=== PATIENT | female | born 1965 | race Two or more races ===

== ENCOUNTER 2021-04-17 15:21 | Emergency (ER) | payer MEDICAID ==
[~2021-04-17] VITALS: Ht 160 cm; Wt 88.5 kg
[~2021-04-17 15:21] MED LIST: CEPH-569; HYDR-3974; SULF1TAB47
--- NOTE | 2021-04-17 15:44 | NUR ---
ER BED 3, C/O MD GUS AT BEDSIDE, PT SHOWS NO RESPIRATORY DISTRESS, RESPIRATIONS WITHIN NORMAL LIMITS. EKG AT BEDSIDE
--- NOTE | 2021-04-17 15:56 | NUR ---
URINE SAMPLE COLLECTED AND SENT TO LAB
[2021-04-17 16:00] LABS: BASOPHILS % (AUTO) 0.5 % (0.0-2.0); EOSINOPHILS % (AUTO) 1.7 % (0.0-6.0); HEMATOCRIT 41 % (33-45); HEMOGLOBIN 13.1 g/dL (11.5-14.8); LYMPHOCYTES # (AUTO) 1.9 K/uL (0.8-4.8); LYMPHOCYTES % (AUTO) 28.9 % (20.0-44.0); MEAN CORPUSCULAR HGB CONC 32 g/dl (31.0-36.0); MEAN CORPUSCULAR VOLUME 87 fL (82-100); MONOCYTES # (AUTO) 0.5 K/uL (0.1-1.30); MONOCYTES % (AUTO) 7.2 % (2.0-12.0); NEUTROPHILS # (AUTO) 4.1 K/uL (1.8-8.9); NEUTROPHILS % (AUTO) 61.7 % (43.0-81.0); PLATELET COUNT (AUTO) 225 K/uL (150-450); RED BLOOD CELL COUNT(AUTO) 4.64 MIL/uL (4.0-5.2); WHITE BLOOD COUNT (AUTO) 6.6 K/uL (4.3-11.0)
[2021-04-17] MEDS: IV NS 0.9% 1,000 ML BAG IV ONE (16:00)
[2021-04-17 16:10] LABS: CALCIUM, SERUM 9.1 mg/dL (8.5-10.1); CARBON DIOXIDE 28 mmol/L (21-32); CHLORIDE 108 mmol/L (98-107); CREATININE 0.6 mg/dL (0.6-1.3); GLUCOSE 110 mg/dL (74-106); POTASSIUM 3.7 mmol/L (3.5-5.1); SODIUM SERUM 145 mmol/L (136-145); UREA NITROGEN, BLOOD 12 mg/dL (7-18)
[2021-04-17 16:26] LABS: THYROID STIMULATING HORMONE < 0.007 uIU/mL (0.358-3.74)
[2021-04-17 16:39] LABS: BILIRUBIN,URINE Negative (NEGATIVE); COLOR,URINE YELLOW (YELLOW); LEUKOCYTE ESTERASE ,URINE Trace (NEGATIVE); NITRITE, URINE Negative (NEGATIVE); PROTEIN,URINE Negative (NEGATIVE); UGLUCOSE Negative (NEGATIVE)
[2021-04-17 16:40] LABS: BACTERIA,URINE Few /HPF (None Seen); SQUAMOUS EPITHELIAL CELL,UR Few /HPF (None Seen)
[2021-04-17 18:16] LABS: ALKALINE PHOSPHATASE 89 U/L (46-116); BILIRUBIN,TOTAL 0.3 mg/dL (0.2-1.0)
[2021-04-17 18:17] LABS: ALANINE AMINOTRANSFERASE 34 U/L (12-78); ALBUMIN 3.6 g/dL (3.4-5.0); ASPARTATE AMINOTRANSFERASE 19 U/L (15-37); LIPASE 212 U/L (73-393); TOTAL PROTEIN, SERUM 7.7 g/dL (6.4-8.2)
--- NOTE | 2021-04-17 18:42 | NUR ---
LIVER ENZYMES TEST ARE BACK, T3 TEST SENT TO [facility] PER MD ALEXIS NOTIFIED
[2021-04-17] MEDS ORDERED: POLY17PO4 PO (19:52)
--- NOTE | 2021-04-17 20:06 | NUR ---
Patient discharged to home in stable condition. Written and verbal after care instructions given. Patient verbalizes understanding of instruction.
[2021-04-17 20:07] VITALS: BP 134/64
== END 2021-04-17 20:07 | disposition home or self-care (01) ==
LOC: ER 15:25
DX: E05.90 Thyrotoxicosis, unspecified without thyrotoxic crisis or storm (principal); R07.89 Other chest pain; Z98.890 Other specified postprocedural states; Z79.899 Other long term (current) drug therapy
CPT/HCPCS: 36415; 71045; 76705; 80053; 81001 ×2; 83690; 84439; 84443; 84480; 84484 ×2; 84703; 85025; 85378; 93005 ×3; 96360; 99285; J7030

== ENCOUNTER 2022-03-26 11:36 | Emergency (ER) | payer MEDICAID ==
[~2022-03-26] VITALS: Ht 160 cm; Wt 85.3 kg
[~2022-03-26 11:36] MED LIST changes: +POLY17PO4 PO
[2022-03-26 12:13] VITALS: BP 142/86
[2022-03-26] MEDS ORDERED: GUAIFENESIN/D-METHORPHAN HB 5 ML UDC ONE (12:43)
[2022-03-26] MEDS: GUAIFENESIN/D-METHORPHAN HB 5 ML UDC PO ONE (12:45)
--- NOTE | 2022-03-26 13:45 | NUR ---
COVID AND FLU SWABS DONE AND SENT TO LAB
[2022-03-26] MEDS ORDERED: BENZ-13 PO (14:05)
[2022-03-26] MEDS ORDERED: GUAI1TBM19 PO (14:05)
--- NOTE | 2022-03-26 14:17 | NUR ---
Patient discharged to home in stable condition. Written and verbal after care instructions given. Patient verbalizes understanding of instruction.
== END 2022-03-26 14:17 | disposition home or self-care (01) ==
LOC: ER 11:42
DX: J06.9 Acute upper respiratory infection, unspecified (principal); B97.89 Other viral agents as the cause of diseases classified elsewhere; M79.10 Myalgia, unspecified site; Z20.822 Contact with and (suspected) exposure to COVID-19; E89.0 Postprocedural hypothyroidism
CPT/HCPCS: 71045; 87426; 87804; 99284; C9803

== ENCOUNTER 2022-10-29 15:10 | Emergency (ER) | payer MEDICAID, OTHER ==
[~2022-10-29] VITALS: Ht 160 cm; Wt 86.2 kg
[~2022-10-29 15:10] MED LIST changes: +BENZ-13 PO; +GUAI1TBM19 PO
--- NOTE | 2022-10-29 15:40 | NUR ---
RECEIVED PT 57 YRS FEMALE CAME FROM HOME C/O NECK AND BACK PAIN S/P TA THIS no weekness
[2022-10-29] MEDS ORDERED: CARI350T PO (16:42)
--- NOTE | 2022-10-29 16:50 | NUR ---
Paul smith in [facility] - 10/29/22 at 1651 by JESSICA [employer] AT [facility] SIDE
[2022-10-29 17:44] VITALS: BP 131/77
--- NOTE | 2022-10-29 17:45 | NUR ---
Patient discharged to home in stable condition. Written and verbal after care instructions given. Patient verbalizes understanding of instruction.
== END 2022-10-29 17:37 | disposition home or self-care (01) ==
LOC: ER 15:26
DX: S13.4XXA Sprain of ligaments of cervical spine, initial encounter (principal); Z98.890 Other specified postprocedural states; Z90.710 Acquired absence of both cervix and uterus; Z79.899 Other long term (current) drug therapy; V49.9XXA Car occupant (driver) (passenger) injured in unspecified traffic accident, initial encounter; Y93.89 Activity, other specified; Y92.89 Other specified places as the place of occurrence of the external cause; Y99.8 Other external cause status
CPT/HCPCS: 72125-TC

== ENCOUNTER → 2024-02-07 | Emergency (ER) | payer OTHER ==
[~2024-02-07] VITALS: Ht 162.6 cm; Wt 82.1 kg
[~2024-02-07] MED LIST changes: +ACET-2605 PO; +ACETAMINOPHEN ES 500 MG TABLET ONE; +CARI350T PO; +CYCL10TA9 PO; +CYCLOBENZAPRINE 10 MG TABLET ONE; +IBUP-1957 PO; +KETOROLAC TROMETHAMINE 15 MG/ML VIAL ONE; +LIDOCAINE 5% (PATCH) 1 EA PATCH TP ONE
[2024-02-07] MEDS: KETOROLAC TROMETHAMINE 15 MG/ML VIAL IM ONE (15:20)
[2024-02-07 15:21] LABS: APPEARANCE,URINE CLEAR (CLEAR); BILIRUBIN,URINE NEGATIVE (NEGATIVE); BLOOD, URINE NEGATIVE Ery/uL (NEGATIVE); COLOR,URINE YELLOW (YELLOW); KETONES,URINE NEGATIVE (NEGATIVE); LEUKOCYTE ESTERASE ,URINE NEGATIVE (NEGATIVE); NITRITE, URINE NEGATIVE (NEGATIVE); PROTEIN,URINE NEGATIVE (NEGATIVE); UGLUCOSE NEGATIVE (NEGATIVE); UROBILINOGEN,URINE 0.2 EU/dL (0.2)
[2024-02-07] MEDS: ACETAMINOPHEN ES 500 MG TABLET PO ONE (15:21)
[2024-02-07] MEDS: CYCLOBENZAPRINE 10 MG TABLET PO ONE (15:21)
[2024-02-07] MEDS: LIDOCAINE 5% (PATCH) 1 EA PATCH TP SCH (15:22)
[2024-02-07 16:49] VITALS: BP 122/70; TEMP 98.7; O2SAT 99
== END | disposition home or self-care (01) ==
LOC: ER 12:38
DX: M54.50 Low back pain, unspecified (principal); Z90.710 Acquired absence of both cervix and uterus; Z79.899 Other long term (current) drug therapy
CPT/HCPCS: 99284; 96372; 81003; J1885